=== PATIENT | female | born 1950 | race Caucasian/White ===

== ENCOUNTER 2019-09-06 20:07 | Inpatient (IN) | payer OTHER ==
[~2019-09-06] VITALS: Ht 160 cm; Wt 61.7 kg
[2019-09-06 20:23] LABS: BASOPHILS ABSOLUTE AUTO 0.03 K/mm3 (0.00-0.23); BASOPHILS PERCENT AUTO 0 % (0-2); EOSINOPHILS ABSOLUTE AUTO 0.07 K/mm3 (0.00-0.68); EOSINOPHILS PERCENT AUTO 1 % (0-6); Hematocrit 35.3 % (33.0-51.0); Hemoglobin 11.9 g/dL (11.5-16.0); IMMATURE GRAN ABSOLUTE AUTO 0.21 K/mm3 (0.00-0.10); IMMATURE GRAN PERCENT AUTO 2 % (0-1); LYMPHOCYTES ABSOLUTE AUTO 3.38 K/mm3 (0.84-5.20); LYMPHOCYTES PERCENT AUTO 30 % (21-46); MONOCYTES ABSOLUTE AUTO 0.59 K/mm3 (0.16-1.47); MONOCYTES PERCENT AUTO 5 % (4-13); Mean Corpuscular HGB 30.1 pg (26.0-34.0); Mean Corpuscular HGB Conc 33.7 g/dL (31.5-36.5); Mean Corpuscular Volume 89 fL (80-100); Mean Platelet Volume 9.8 fL (9.1-12.4); NEUTROPHILS ABSOLUTE AUTO 6.97 K/mm3 (1.96-9.15); NEUTROPHILS PERCENT AUTO 62 % (41-73); Platelet Count 274 K/mm3 (150-400); RDW Coefficient Variation 13.7 % (11.7-14.2); RDW Standard Deviation 45.2 fL (35.1-46.3); Red Blood Cell Count 3.95 M/mm3 (3.80-5.20); White Blood Cell Count 11.25 K/mm3 (4.00-11.30)
[2019-09-06 20:41] LABS: Alanine Aminotransfer (ALT/SGP 182 U/L (12-78); Albumin, Blood 3.5 g/dL (3.4-5.0); Albumin/Globulin Ratio 0.9 (0.8-1.8); Alk Phos 59 U/L (50-136); Anion Gap 3 mmol/L (6-16); Aspartate Aminotrans (AST/SGOT 125 U/L (12-37); Bilirubin, Total 0.2 mg/dL (0.1-1.0); Blood Urea Nitrogen 15 mg/dL (8-24); Bun/Creatinine Ratio 18.4 (12.0-20.0); CO2, Blood 29 mmol/L (21-32); Calcium, Blood 8.7 mg/dL (8.5-10.1); Chloride, Blood 106 mmol/L (98-108); Creatinine, Blood 0.82 mg/dL (0.40-1.00); Globulin, Blood 3.8 g/dL (2.2-4.0); Glomerular Filtration Rate >60 (60-); Glucose, Blood 118 mg/dL (70-99); Potassium, Blood 3.5 mmol/L (3.5-5.5); Sodium, Blood 138 mmol/L (136-145); Total Protein, Blood 7.3 g/dL (6.4-8.2)
[2019-09-06 20:47] LABS: International Normalized Ratio 0.96; Prothrombin Time Results 10.3 Sec (9.7-11.5)
[2019-09-06 20:59] LABS: Source, Urine Clean Catch
[2019-09-06 21:02] LABS: Bilirubin, Urine Neg (Neg); Blood, Urine 2+ (Neg); Glucose Qualitative, Urine Neg (Neg); Ketones, Urine Neg (Neg); Leukocyte Esterase, Urine Neg (Neg); Nitrite, Urine Neg (Neg); Protein, Urine Neg (Neg); Urobilinogen, Urine NORM (Normal)
[2019-09-06 21:10] LABS: Appearance, Urine Clear (Clear); Color, Urine Yellow (P-Yellow)
[2019-09-06 21:11] LABS: Bacteria Few /hpf; Squamous Epithelial Cells Rare /hpf (Few)
[2019-09-06] MEDS ORDERED: CYCL10 PO (21:22)
[2019-09-06] MEDS ORDERED: HYDROCODONE-AC1 EAC1 PO (21:22)
[2019-09-06] MEDS ORDERED: Amlodipine Bes2.5 MG PO (21:23)
[2019-09-06] MEDS ORDERED: SPIR50 PO (21:23)
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
--- NOTE | 2019-09-07 04:19 | NUR ---
SHIFT SUMMARY PT A/OX4 WITH VSS. PAIN MANAGED WITH 0.5MG IV DILAUDID Q2. DENIES SOB OR N/V; HOWEVER REPORTS RIB PAIN CAUSES DISCOMFORT WITH DEEP BREATHING. IS NPO. HAS RESTED IN BED SINCE ADMIT. IS CURRENTLY RESTING IN BED WITH CALL LIGHT IN REACH. WILL CONT TO MONITOR AND GIVE REPORT TO ONCOMING RN.
[2019-09-07 11:36] LABS: BASOPHILS ABSOLUTE AUTO 0.02 K/mm3 (0.00-0.23); BASOPHILS PERCENT AUTO 0 % (0-2); EOSINOPHILS PERCENT AUTO 0 % (0-6); Hematocrit 35.1 % (33.0-51.0); Hemoglobin 11.5 g/dL (11.5-16.0); IMMATURE GRAN ABSOLUTE AUTO 0.09 K/mm3 (0.00-0.10); IMMATURE GRAN PERCENT AUTO 1 % (0-1); LYMPHOCYTES PERCENT AUTO 9 % (21-46); MONOCYTES ABSOLUTE AUTO 0.75 K/mm3 (0.16-1.47); MONOCYTES PERCENT AUTO 5 % (4-13); Mean Corpuscular HGB Conc 32.8 g/dL (31.5-36.5); Mean Corpuscular Volume 88 fL (80-100); Mean Platelet Volume 10.1 fL (9.1-12.4); NEUTROPHILS ABSOLUTE AUTO 12.52 K/mm3 (1.96-9.15); NEUTROPHILS PERCENT AUTO 85 % (41-73); Platelet Count 267 K/mm3 (150-400); RDW Coefficient Variation 13.6 % (11.7-14.2); RDW Standard Deviation 44.5 fL (35.1-46.3); Red Blood Cell Count 3.97 M/mm3 (3.80-5.20); White Blood Cell Count 14.68 K/mm3 (4.00-11.30)
[2019-09-07 11:56] LABS: Alanine Aminotransfer (ALT/SGP 181 U/L (12-78); Albumin, Blood 3.4 g/dL (3.4-5.0); Albumin/Globulin Ratio 1.1 (0.8-1.8); Alk Phos 58 U/L (50-136); Anion Gap 4 mmol/L (6-16); Aspartate Aminotrans (AST/SGOT 93 U/L (12-37); Bilirubin, Total 0.4 mg/dL (0.1-1.0); Blood Urea Nitrogen 17 mg/dL (8-24); Bun/Creatinine Ratio 23.9 (12.0-20.0); CO2, Blood 26 mmol/L (21-32); Calcium, Blood 8.8 mg/dL (8.5-10.1); Chloride, Blood 109 mmol/L (98-108); Creatinine, Blood 0.71 mg/dL (0.40-1.00); Globulin, Blood 3.2 g/dL (2.2-4.0); Glomerular Filtration Rate >60 (60-); Glucose, Blood 115 mg/dL (70-99); Potassium, Blood 4.3 mmol/L (3.5-5.5); Sodium, Blood 139 mmol/L (136-145); Total Protein, Blood 6.6 g/dL (6.4-8.2)
--- NOTE | 2019-09-07 18:42 | NUR ---
SHIFT SUMMARY PAIN HAS BEEN MANAGED WITH PO AND IV PAIN MEDICATION. PT IS A 1 ASSIST WHEN OOB. TOLERATING PO PAIN MEDICATION. VSS. WILL MONITOR UNTIL REPORT TO ONCOMING RN.
--- NOTE | 2019-09-08 04:10 | NUR ---
SHIFT SUMMARY AA0X4, VSS. PT AMBULATING WITH SBY ASSIST. FWW. VOIDING IN BATHROOM. TOLERATING PO WELL, PAIN MANAGED WITH ORAL PAIN MEDICING AND APPLICATION INTEGRATOR FOR BREAKTHROUGH PAIN. PT USING INCENTIVE SPIROMETER. RESTING IN BED PT STATED SHE WAS ABLE TO GET SOME SLEEP THIS SHIFT.
[2019-09-08 04:47] LABS: BASOPHILS ABSOLUTE AUTO 0.03 K/mm3 (0.00-0.23); BASOPHILS PERCENT AUTO 0 % (0-2); EOSINOPHILS ABSOLUTE AUTO 0.03 K/mm3 (0.00-0.68); EOSINOPHILS PERCENT AUTO 0 % (0-6); Hematocrit 32.2 % (33.0-51.0); Hemoglobin 10.7 g/dL (11.5-16.0); IMMATURE GRAN ABSOLUTE AUTO 0.05 K/mm3 (0.00-0.10); IMMATURE GRAN PERCENT AUTO 1 % (0-1); LYMPHOCYTES ABSOLUTE AUTO 2.35 K/mm3 (0.84-5.20); LYMPHOCYTES PERCENT AUTO 25 % (21-46); MONOCYTES ABSOLUTE AUTO 0.54 K/mm3 (0.16-1.47); MONOCYTES PERCENT AUTO 6 % (4-13); Mean Corpuscular HGB 29.2 pg (26.0-34.0); Mean Corpuscular HGB Conc 33.2 g/dL (31.5-36.5); Mean Corpuscular Volume 88 fL (80-100); Mean Platelet Volume 9.8 fL (9.1-12.4); NEUTROPHILS ABSOLUTE AUTO 6.44 K/mm3 (1.96-9.15); NEUTROPHILS PERCENT AUTO 68 % (41-73); Platelet Count 220 K/mm3 (150-400); RDW Coefficient Variation 13.8 % (11.7-14.2); RDW Standard Deviation 45.2 fL (35.1-46.3); Red Blood Cell Count 3.66 M/mm3 (3.80-5.20); White Blood Cell Count 9.44 K/mm3 (4.00-11.30)
[2019-09-08 05:05] LABS: Anion Gap 4 mmol/L (6-16); Blood Urea Nitrogen 16 mg/dL (8-24); Bun/Creatinine Ratio 21.1 (12.0-20.0); CO2, Blood 26 mmol/L (21-32); Calcium, Blood 8.3 mg/dL (8.5-10.1); Chloride, Blood 108 mmol/L (98-108); Creatinine, Blood 0.76 mg/dL (0.40-1.00); Glomerular Filtration Rate >60 (60-); Glucose, Blood 107 mg/dL (70-99); Potassium, Blood 3.8 mmol/L (3.5-5.5); Sodium, Blood 138 mmol/L (136-145)
--- NOTE | 2019-09-09 04:16 | NUR ---
SHIFT SUMMARY AA0X4, VSS. PT AMBULATING WITH FWW/SBY ASSIST. ABLE TO WALK TO BATHROOM AND BACK, TOLERATES WELL. MEDICATED FOR PAIN PER EMAR Q4 HOURS. STILL USING CUSTOMER DEVELOPMENT REPRESENTATIVE SMALL AMOUNT FOR SOME BREAKTHROUGH PAIN. SMALL BRUISING ON HIPS. PT PAINFUL WITH COUGHING, SPLINTING CHEST WITH PILLOW. PT RESTING IN BED THROUGHOUT SHIFT REPORTS SLEEPING WELL.
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
--- NOTE | 2019-09-09 18:40 | NUR ---
SHIFT SUMMARY PT EATING AND DRINKING, VOIDING. REPORTS NO BM YET. PT MED WITH [facility] ORDERED IF PRUNE JUICE EARLIER WAS NOT EFFECTIVE IT WAS NOT. PT USING [employer] LIGHT APPR. PT BEEN ASSISTED WITH ADL'S PRN. PT BEEN MED PRN FOR PAIN. DISCUSSED PAIN MGMT/BOWEL CARE WITH PT.
--- NOTE | 2019-09-10 03:47 | NUR ---
SHIFT SUMMARY PT A/OX4 WITH VSS AND NO ACUTE CHANGES THIS SHIFT. CONTINUES TO BE PAINFUL WITH MOVEMENT, MEDICATED WITH 2 PO NORCO Q4. AMBULATED IN ROOM AND HALLWAY. DENIES N/V, TOLERATING PO INTAKE. VOIDING WITHOUT DIFFICULTY. NO BM BUT REPORTS PASSING FLATUS; ENCOURAGED AMBULATION AND PO FLUID INTAKE. IS CURRENTLY RESTING IN BED WITH CALL LIGHT IN REACH. WILL CONT TO MONITOR AND GIVE REPORT TO ONCOMING RN.
--- NOTE | 2019-09-10 12:59 | NUR ---
PT REPORTS "I THINK I ATE TOO MUCH" PT MED FOR NAUSEA.
--- NOTE | 2019-09-10 13:04 | NUR ---
Patient is sitting on a chair and alert. Patient tells me that she is being DC this day. Patient shares about her concerns and the benefits of her new living arrangements as she recovers. Patient talks about her father and the spiritual influence he has had on her life even though while he was alive she did not want anything to do with God. We talked about her goals moving forward to live more connected to God, make healthier choices and take the forced recovery time as a time of reflection and self evaluation. Patient has many questions of a spiritual nature, which I gladly answer for patient. I listen empathically, encourage self-care and provide pastoral debt and budget counselor and prayer.
[2019-09-10] MEDS ORDERED: Norco 10-325 T1 EACH PO (13:47)
--- NOTE | 2019-09-10 13:58 | NUR ---
DISCHARGE: PT EATING AND DRINKING, VOIDING, REPORTS PASSING GAS. REPORTS PAIN CONTROLLED ON PO PAIN MEDICATION. PT REPORTS UNDERSTANDING OF DISCHARGE INSTRUCTIONS. PT SENT WITH PAPERWORK, SCRIPT, BELONGINGS. FAMILY/FRIEND GIVING PT RIDE HOME.
== END 2019-09-10 14:03 | disposition home or self-care (01) | DRG 948 ==
LOC: ER 20:07 → SURS 23:04
PROVIDERS: Emergency Medicine; ADMIT Surgery
DX: G89.11 Acute pain due to trauma (principal); S22.41XA Multiple fractures of ribs, right side, initial encounter for closed fracture; S32.030A Wedge compression fracture of third lumbar vertebra, initial encounter for closed fracture; V49.40XA Driver injured in collision with unspecified motor vehicles in traffic accident, initial encounter; I10 Essential (primary) hypertension; F17.210 Nicotine dependence, cigarettes, uncomplicated
CPT/HCPCS: 36415; 70450; 71045; 71260; 72125; 72170; 74177; 80048; 80053; 81001; 83690; 85025; 85610; 86850; 86900; 86901; 93005; 93010; 96374-59; 96375; 96376; 97110; 97116; 97161; 97165; 97530; 97535; 99285-25; J1170; J1200; J1885; J2405; J2930; J3010; J7030; P9612; Q9967